=== PATIENT | female | born 1980 | race Hispanic/Latino ===

== ENCOUNTER 2022-07-26 22:15 | Emergency (ER) | payer OTHER ==
[~2022-07-26] VITALS: Ht 149.9 cm; Wt 74.0 kg
[~2022-07-26 22:15] MED LIST: HYDROXYZINE HCL50 MG PO; IBUPROFEN600 MG PO
[2022-07-26] MEDS ORDERED: OMEPRAZOLE20 MG PO (22:41)
[2022-07-26] MEDS ORDERED: PROZAC40 MG PO (22:41)
--- NOTE | 2022-07-27 21:37 | EKG ---
[facility] [address] [facility] [place] [address] Signed Normal sinus rhythm Normal ECG No previous ECGs available Confirmed by Torres Amin MD () on 07/27/2022 9:37:04 PM Electronically Signed By: TORRES AMIN MD 07/27/227 PATIENT NAME: BENIGNO SILVA Electrocardiogram DATE OF : 78 PHYSICIAN: TORRES AMIN MD REPORT #: [id number] REPORT IS CONFIDENTIAL AND NOT TO BE RELEASED WITHOUT AUTHORIZATION
== END 2022-07-27 00:11 | disposition home or self-care (01) ==
LOC: ED 22:15
DX: R07.9 Chest pain, unspecified (principal); K21.9 Gastro-esophageal reflux disease without esophagitis; Z79.899 Other long term (current) drug therapy
CPT/HCPCS: 36415; 71045; 80053; 83735; 84484; 84703; 85025; 85379; 93005; 93010; 99285-25; A9270

== ENCOUNTER 2024-07-10 03:39 | Inpatient (IN) | payer OTHER ==
[~2024-07-10 03:39] MED LIST changes: +OMEPRAZOLE20 MG PO; +PROZAC40 MG PO
[2024-07-10] MEDS ORDERED: CALCIUM CARBONATE 500 MG CHEW PO PRN ×2 (04:15→05:45)
[2024-07-10] MEDS ORDERED: OXYTOCIN/DEXTROSE 5% 20 UNITS/100 ML BAG IV SCH (04:15)
[2024-07-10] MEDS ORDERED: MAGNESIUM HYDROXIDE/AL HYDROX 30 ML CUP PO PRN ×2 (04:15→05:45)
[2024-07-10 04:29] LABS: HEMATOCRIT 36.4 % (35.0-50.0); HEMOGLOBIN 12.4 g/dL (12.0-18.0); MCH 29.1 (27-36); MCHC 34.1 g/dl (30-36); MCV 85.2 fl (81-99); RBC 4.27 M/ul (4.3-5.7); RDW 14.1 (10.5-15.0)
[2024-07-10 04:40] VITALS: BP 106/62
[2024-07-10] MEDS ORDERED: ROPIVACAINE 0.2% 200 ML BAG ONE (05:00)
[2024-07-10] MEDS ORDERED: fentaNYL citrate 100 MCG/2 ML VIAL ONE (05:00)
[2024-07-10 05:08] LABS: ABO O; ANTIBODY SCREEN NEGATIVE; RH POSITIVE
[2024-07-10] MEDS ORDERED: IBUPROFEN 600 MG TAB PO PRN (05:45)
[2024-07-10] MEDS ORDERED: LIDOCAINE 2% VISCOUS 6 ML SYR TOP ONE ×2 (05:45)
[2024-07-10] MEDS ORDERED: OXYTOCIN/0.9 % SODIUM CHLORIDE 500 ML IV SCH (05:45)
[2024-07-10] MEDS ORDERED: BENZOCAINE 60 ML AEROSOL TOP PRN (05:45)
[2024-07-10] MEDS ORDERED: ACETAMINOPHEN 325 MG TAB PO PRN (05:45)
[2024-07-10] MEDS ORDERED: OXYCODONE/APAP 5/325 TAB PO PRN (05:45)
[2024-07-10] MEDS ORDERED: HYDROCORTISONE ACETATE 25 MG SUPP PR PRN (05:45)
[2024-07-10] MEDS ORDERED: OXYCODONE HCL 5 MG TAB PO PRN (05:45)
[2024-07-10] MEDS ORDERED: WITCH HAZEL/GLYCERIN 1 EA PAD TOP PRN (05:45)
[2024-07-10] MEDS ORDERED: HYDROCODONE/ACETA 5/325 TAB PO PRN (05:45)
[2024-07-10] MEDS ORDERED: MAGNESIUM HYDROXIDE 30 ML UDC PO PRN (05:45)
[2024-07-10] MEDS ORDERED: IBUPROFEN 600 MG TAB ONE (07:46)
[2024-07-10] MEDS ORDERED: ACETAMINOPHEN 325 MG TAB ONE (07:46)
[2024-07-10] MEDS ORDERED: SENNOSIDES/DOCUSATE 1 EA TAB PO SCH (09:00)
[2024-07-10] MEDS ORDERED: FLUOXETINE HCL 10 MG CAP PO SCH (09:00)
--- NOTE | 2024-07-10 14:04 | NUR ---
ALERT AND ORIENTED IN BED. TRANSLATION SERVICES USED. JONH ID# [id number]. DISCUSSED PATIENT NEEDS WITH PATIENT. STATES NO ISSUES WITH HOUSING, UTILTIES OR FOOD. INFOR[facility] THROUGH HER INSURANCE AND INSTRUCTED TO CALL AT LEAST 24 HOURS AHEAD OF TIME. DOES STATE THAT HER PARTNER WILL PICK HER UP FROM FACILITY WHEN SHE IS DISCHARGED. DENIES OTHER CM NEEDS.
== END 2024-07-11 13:00 | disposition home or self-care (01) | DRG 807 ==
LOC: FBCO 03:39 → FBC 03:49
PROVIDERS: ADMIT Student in an Organized Health Care Education/Training Program; ATTEND Student in an Organized Health Care Education/Training Program
PROC: 10E0XZZ Delivery of Products of Conception, External Approach (ICD-10-PCS; principal; 2024-07-10)
PROC: 0HQ9XZZ Repair Perineum Skin, External Approach (ICD-10-PCS; 2024-07-10)
PROC: 3E0R3BZ Introduction of Anesthetic Agent into Spinal Canal, Percutaneous Approach (ICD-10-PCS; 2024-07-10)
PROC: 00HU33Z Insertion of Infusion Device into Spinal Canal, Percutaneous Approach (ICD-10-PCS; 2024-07-10)
DX: O62.3 Precipitate labor (principal); Z37.0 Single live birth; O76 Abnormality in fetal heart rate and rhythm complicating labor and delivery; O99.345 Other mental disorders complicating the puerperium; F53.0 Postpartum depression; Z3A.38 38 weeks gestation of pregnancy; O70.0 First degree perineal laceration during delivery
CPT/HCPCS: 36415; 80307; 85027; 86850; 86900; 86901; A9270; J2590; J2795; J3010